=== PATIENT | female | born 1945 | race Caucasian/White ===

== ENCOUNTER → 2020-05-29 13:43 | Outpatient (CLI) | payer MEDICARE, OTHER, SELFPAY ==
[2020-05-29 14:29] LABS: COVID19 -Nasal RAPID Negative (Negative)
== END ==
PROVIDERS: PCP Internal Medicine; Referring Provider Family Medicine Sleep Medicine; Visit Provider Family Medicine Sleep Medicine
DX: Z20.822 Contact with and (suspected) exposure to COVID-19 (principal)
CPT/HCPCS: 87635; C9803